=== PATIENT | female | born 1975 | race Caucasian/White ===

== ENCOUNTER 2016-06-03 18:59 | Emergency (ER) | payer MEDICARE, OTHER ==
--- NOTE | ~2016-06-03 | EKG ---
PATIENT: CHRIS GUPTA UNIT #: [id number] Ventricular Rate: 68 BPM Atrial Rate: 68 BPM P-R Interval: 170 ms QRS Duration: 68 ms Q-T Interval: 418 ms QTC Calculation(Bezet): 444 ms P [place]: 74 degrees Calculated R [place]: -7 degrees Calculated T [place]: 51 degrees Diagnosis Line: Normal sinus rhythm Diagnosis Line: Low voltage QRS Diagnosis Line: Borderline ECG Diagnosis Line: When compared with ECG of 13-APR-2016 19:57, Diagnosis Line: No significant change was found Diagnosis Line: Confirmed by WILLY GEORGE MD ([id number]) on 06/04/2016 Diagnosis Line: 7:32:06 PM INTERPRETING MD: ARIEL LEÓN
--- NOTE | ~2016-06-03 | CR72 ---
[facility] A Service of [facility] & [facility] / [facility] RADIOLOGY TEXT RESULTS PATIENT: CHRIS GUPTA LOCATION: [facility] : 77 UNIT #: [id number] AGE: [address]: Ej Navarro MD SEX: F ORDER DR: [id number] [facility] [address] [place], [place] [address] [id number] E MR#: [id number] Acc #: [id number] NAME: CHRIS GUPTA. : 1975 SEX: F STUDY DATE/TIME: 06/03/2016 19:16 UNIT: [facility] ROOM: STUDY DESCRIPTION: CR Chest Single View Portable Attending Physician: Ej Navarro M.D. Ordering Physician: Ed Ashwin Segovia M.D. Primary Care Physician: Eddie Pereira M.D. MEDICAL IMAGING REPORT This report is preliminary unless electronic signature is present EXAM Portable chest, 06/03/2016 HISTORY Generalized weakness, dizziness and lightheadedness beginning today. FINDINGS A single AP portable view of the chest shows both lungs to be clear. The heart is normal in size. The mediastinal contour is normal. No significant bone abnormalities are seen. IMPRESSION Normal portable chest. Dictated by... Ari Dos Santos M.D. THIS IS AN ELECTRONICALLY VERIFIED REPORT Ari Dos Santos M.D. at 06/04/2016 10:56 AM DAMIAN/jackie TD: 06/04/2016 03:34 JOB #: [id number] MEDICAL IMAGING REPORT COPY
[~2016-06-03 18:59] MED LIST: ACETAMINOPHEN PO; ALBUTEROL17 GM INH; ALPRAZOLAM; ALPRAZOLAM PO; ANTI-FUNGAL15 GM TOP; DEPAKOTE; DEPAKOTE (UD)250 M1 PO; DEPAKOTE PO; DIFLUCAN PO; FLEXERIL PO; FLEXERIL10 M1 PO; HUMIBID CS TABL1 TAB PO; HYDROCODON-ACE1 EAC7 PO; KEFLEX PO; KEFLEX500 MG PO; KLONOPIN PO; LORTAB 10-5001 EACH; MAGIC MOUTHWASH PO; MEDROL4 MG/DOSE- PO; NABUMETONE PO; NAPROSYN500 MG PO; ORUDIS75 M1 PO; PAXIL; PAXIL PO; PERCOCET PO; PHENERGAN PO; PREDNISONE PO; PRENATAL VITAMI1 TA3 PO; PRENATAL1 TA1; PRENATAL1 TA1 PO; ULTRAM PO; VICODIN 5/500 T1 TAB PO; VOLTAREN50 MG PO; XANAX1 MG PO; ZITHROMAX PO; ZITHROMAX1 G/PKT PO; ZITHROMAX600 MG PO
[2016-06-03 19:04] LABS: URINE SOURCE CLEAN CATCH
[2016-06-03 19:07] LABS: BASOPHIL# 0.1 X10e3 (0-0.3); BASOPHIL% 1.3 % (0-2.5); EOSINOPHIL# 0.3 X10e3 (0-0.7); HEMATOCRIT 38.1 % (35.0-45.0); HEMOGLOBIN 12.7 gm/dL (12.0-16.0); LYMPHOCYTE# 2.5 X10e3 (1.0-3.5); LYMPHOCYTE% 30.4 % (17.0-45.0); MEAN CELL VOLUME 89.2 FL (83-96); MEAN CORPUSCULAR HEMOGLOBIN 29.7 PG (28-34); MEAN CORPUSCULAR HGB CONC 33.3 g/dL (30-36); MONOCYTE# 0.9 X10e3 (0-1.0); MONOCYTE% 10.9 % (3.0-12.0); NEUTROPHIL# 4.3 X10e3 (1.5-7.1); NEUTROPHIL% 53.4 % (40-75); PLATELET COUNT 279 X10e3 (140-420); RED BLOOD COUNT 4.27 X10e (3.90-5.30); RED CELL DISTRIBUTION WIDTH 12.9 % (11.0-15.5); WHITE BLOOD COUNT 8.1 X10e3 (4.0-10.5)
[2016-06-03 19:08] LABS: DIFF IND NO
[2016-06-03 19:10] LABS: URINE APPEARANCE CLEAR; URINE BILIRUBIN NEG (NEG); URINE BLOOD 1+ (NEG); URINE COLOR YELLOW; URINE GLUCOSE NEG (NEG); URINE KETONE NEG (NEG); URINE LEUKOCYTE ESTERASE TRACE (NEG); URINE NITRATE NEG (NEG); URINE PH 5.5 (5-8); URINE PROTEIN NEG (NEG); URINE SPECIFIC GRAVITY 1.028 (1.003-1.035)
[2016-06-03 19:13] LABS: CULTURE INDICATED? YES; URINE BACTERIA AUWI 1+ (NEGATIVE); URINE SQUAMOUS EPITHELIAL CELL OCC /[HPF]
[2016-06-03 19:22] LABS: POC - CKMB <1.0 ng/mL (0.0-7.9); POC - TROPONIN <0.05 ng/mL (<=0.05)
[2016-06-03 19:35] LABS: ALBUMIN SERUM 3.9 g/dL (3.5-5.0); BILIRUBIN, DIRECT 0.1 mg/dL (0.0-0.2); BILIRUBIN,INDIRECT 0.4 mg/dL (0.0-0.9); BILIRUBIN,TOTAL 0.5 mg/dL (0.2-2.0); BUN/CREATININE RATIO 14.16; CALCIUM SERUM 8.9 mg/dL (8.4-10.2); CREATININE SERUM 1.2 mg/dL (0.6-1.4); GLOM FILT RATE Estimated 52.9 mL/min (>60); POTASSIUM 3.9 mmol/L (3.5-5.1); PROTEIN TOTAL SERUM 7.4 g/dL (6.0-8.3)
[2016-06-03 20:59] LABS: POC - CKMB <1.0 ng/mL (0.0-7.9); POC - TROPONIN <0.05 ng/mL (<=0.05)
== END 2016-06-03 21:20 | disposition home or self-care (01) ==
LOC: CED 18:59
PROVIDERS: Emergency Medicine
DX: R53.1 Weakness (principal); F50.89 Other specified eating disorder; N39.0 Urinary tract infection, site not specified; Z88.5 Allergy status to narcotic agent; F31.9 Bipolar disorder, unspecified; F17.210 Nicotine dependence, cigarettes, uncomplicated
CPT/HCPCS: 36415; 71010; 80048; 80076; 81003; 82553; 82947; 84443; 84484; 84703; 85025; 86850; 86900; 86901; 87086; 93005; 99283

== ENCOUNTER 2016-08-04 18:24 | Emergency (ER) | payer MEDICARE, OTHER | END 2016-08-04 18:43 | disposition home or self-care (01) | LOC: CFTX 18:24 | DX: Z46.6 Encounter for fitting and adjustment of urinary device (principal); F17.210 Nicotine dependence, cigarettes, uncomplicated | CPT/HCPCS: 99282; 99283 ==

== ENCOUNTER 2016-08-06 18:15 | Emergency (ER) | payer OTHER, MEDICARE ==
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
== END 2016-08-06 19:40 | disposition home or self-care (01) ==
LOC: CFTX 18:15
DX: S16.1XXA Strain of muscle, fascia and tendon at neck level, initial encounter (principal); T14.8 Other injury of unspecified body region; F17.210 Nicotine dependence, cigarettes, uncomplicated; F41.9 Anxiety disorder, unspecified; V49.50XA Passenger injured in collision with unspecified motor vehicles in traffic accident, initial encounter; Y92.410 Unspecified street and highway as the place of occurrence of the external cause
CPT/HCPCS: 72040; 72100; 99284

== ENCOUNTER 2016-08-13 08:49 | Emergency (ER) | payer OTHER, MEDICARE ==
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
== END 2016-08-13 10:38 | disposition home or self-care (01) ==
LOC: CED 08:49 → CFTX 08:49
DX: S13.4XXA Sprain of ligaments of cervical spine, initial encounter (principal); S83.91XA Sprain of unspecified site of right knee, initial encounter; F41.9 Anxiety disorder, unspecified; Z87.442 Personal history of urinary calculi; F17.210 Nicotine dependence, cigarettes, uncomplicated; Z88.5 Allergy status to narcotic agent; Z88.6 Allergy status to analgesic agent; V43.62XA Car passenger injured in collision with other type car in traffic accident, initial encounter
CPT/HCPCS: 72040; 99283

== ENCOUNTER 2016-08-16 19:11 | Emergency (ER) | payer MEDICARE, OTHER ==
[2016-08-16 20:30] LABS: URINE SOURCE CLEAN CATCH
[2016-08-16 20:36] LABS: URINE APPEARANCE CLOUDY; URINE BLOOD 3+ (NEG); URINE COLOR DK YELLOW; URINE GLUCOSE NEG (NEG); URINE KETONE TRACE (NEG); URINE LEUKOCYTE ESTERASE TRACE (NEG); URINE NITRATE POS (NEG); URINE PROTEIN 2+ (NEG)
[2016-08-16 20:40] LABS: CULTURE INDICATED? YES; URBCS1 AUWI INNUM /[HPF] (0-2); URINE SQUAMOUS EPITHELIAL CELL OCC /[HPF]
[2016-08-16 20:49] LABS: URINE BILIRUBIN NEG (NEG)
[2016-08-16 20:52] LABS: URINE BACTERIA AUWI 2+ (NEGATIVE); URINE CRYSTALS CALCIUM OXALATE /[HPF]
== END 2016-08-16 22:35 | disposition home or self-care (01) ==
LOC: CED 19:11
PROVIDERS: Emergency Medicine
DX: N30.00 Acute cystitis without hematuria (principal); F17.210 Nicotine dependence, cigarettes, uncomplicated; Z88.5 Allergy status to narcotic agent
CPT/HCPCS: 51702; 81003; 87086; 99283

== ENCOUNTER 2016-10-15 18:37 | Emergency (ER) | payer MEDICARE, OTHER | END 2016-10-15 20:30 | disposition home or self-care (01) | LOC: CFTX 18:37 → CED 18:37 → CFTX 20:08 | DX: L03.112 Cellulitis of left axilla (principal); K21.9 Gastro-esophageal reflux disease without esophagitis; Z88.6 Allergy status to analgesic agent; Z88.5 Allergy status to narcotic agent; W57.XXXA Bitten or stung by nonvenomous insect and other nonvenomous arthropods, initial encounter | CPT/HCPCS: 99282 ==

== ENCOUNTER 2016-11-10 18:29 | Emergency (ER) | payer MEDICARE, OTHER ==
[~2016-11-10] VITALS: Ht 152.4 cm; Wt 60.8 kg
[2016-11-10 19:11] LABS: URINE SOURCE CLEAN CATCH
[2016-11-10 19:19] LABS: URINE APPEARANCE CLEAR; URINE BILIRUBIN NEG (NEG); URINE BLOOD 1+ (NEG); URINE COLOR YELLOW; URINE GLUCOSE NEG (NEG); URINE KETONE NEG (NEG); URINE LEUKOCYTE ESTERASE TRACE (NEG); URINE NITRATE NEG (NEG); URINE PH 5.5 (5-8); URINE PROTEIN NEG (NEG); URINE SPECIFIC GRAVITY 1.022 (1.003-1.035); URINE UROBILINOGEN 0.2 MG/DL (NEG)
[2016-11-10 19:21] LABS: CULTURE INDICATED? YES; U HYALINE CASTS AUWI 0-2 /[LPF]; URINE BACTERIA AUWI 2+ (NEGATIVE); URINE SQUAMOUS EPITHELIAL CELL FEW /[HPF]; UWBCS1 AUWI 0-2 (0-5)
== END 2016-11-10 20:14 | disposition home or self-care (01) ==
LOC: CED 18:29
PROVIDERS: Student in an Organized Health Care Education/Training Program
DX: R30.0 Dysuria (principal); K21.9 Gastro-esophageal reflux disease without esophagitis; F17.200 Nicotine dependence, unspecified, uncomplicated; Z88.5 Allergy status to narcotic agent; Z88.8 Allergy status to other drugs, medicaments and biological substances; Z98.890 Other specified postprocedural states
CPT/HCPCS: 81003; 84703; 87086; 99283

== ENCOUNTER 2016-11-11 07:22 | Emergency (ER) | payer MEDICARE, OTHER ==
[~2016-11-11] VITALS: Ht 152.4 cm; Wt 62.6 kg
--- NOTE | ~2016-11-11 | CT4 ---
[facility] A Service of [facility] & [facility] RADIOLOGY TEXT RESULTS PATIENT: CHRIS GUPTA LOCATION: [facility] : [birth year] UNIT #: [id number] AGE: [address]: Ej Lima MD SEX: F ORDER DR: [id number] [facility] [address] [place], [place] [address] [id number] E MR#: [id number] Acc #: [id number] NAME: CHRIS GUPTA. : 1975 SEX: F STUDY DATE/TIME: 11/11/2016 8:50 UNIT: [facility] ROOM: STUDY DESCRIPTION: CT Abd and Pelv Wo Cont Attending Physician: Ej Lima M.D. Ordering Physician: Ej Lima M.D. Primary Care Physician: Eddie Pereira M.D. MEDICAL IMAGING REPORT This report is preliminary unless electronic signature is present EXAM Abdomen and pelvis CT without contrast. HISTORY Lower abdominal pain radiating into the pelvis beginning last night. TECHNIQUE Axial images were obtained without contrast. This CT exam was performed with one or more of the following radiation dose reduction techniques: Automatic exposure control, adjustment of mA and/or kV according to patient size, and iterative reconstruction. FINDINGS The liver, spleen and pancreas are normal in size. There is a nonobstructing 3 x 7 mm kidney stone on the left in a lower pole dylon. No evidence of hydronephrosis. No adrenal masses. There is no evidence of retroperitoneal adenopathy or ascites. No distended bowel loops are noted. The appendix is normal. In the pelvis, there is no evidence of adenopathy, mass or fluid collection. Moderately increased stool is seen throughout the colon suggesting constipation. IMPRESSION 1. Nonobstructing kidney stone left kidney measuring 3 x 7 mm. 2. No acute or inflammatory changes in the abdomen or pelvis. 3. Moderately increased stool burden suggesting constipation. Since the previous scan of 09/10/2015, no significant changes are noted. Dictated by... Huber Jones M.D. THIS IS AN ELECTRONICALLY VERIFIED REPORT Huber Jones M.D. at 11/11/2016 5:00 PM [facility] A Service of [facility] & [facility] RADIOLOGY TEXT RESULTS PATIENT: CHRIS GUPTA [id number] : [birth year] UNIT #: [id number] AGE: [address]: Ej Lima MD SEX: F ORDER DR: JACQUI/peggy TD: 11/11/2016 14:24 JOB #: [id number] MEDICAL IMAGING REPORT Page 1 of 1 COPY
[2016-11-11 08:23] LABS: BASOPHIL# 0.1 X10e3 (0-0.3); BASOPHIL% 1.2 % (0-2.5); EOSINOPHIL# 0.2 X10e3 (0-0.7); EOSINOPHIL% 2.7 % (0.0-7.0); HEMATOCRIT 40.2 % (35.0-45.0); HEMOGLOBIN 13.7 gm/dL (12.0-16.0); LYMPHOCYTE# 1.8 X10e3 (1.0-3.5); LYMPHOCYTE% 25.1 % (17.0-45.0); MEAN CELL VOLUME 87.7 FL (83-96); MEAN CORPUSCULAR HEMOGLOBIN 29.9 PG (28-34); MEAN CORPUSCULAR HGB CONC 34.2 g/dL (30-36); MEAN PLATELET VOLUME 7.5 FL (6.5-11.5); MONOCYTE# 0.7 X10e3 (0-1.0); MONOCYTE% 9.9 % (3.0-12.0); NEUTROPHIL# 4.4 X10e3 (1.5-7.1); NEUTROPHIL% 61.1 % (40-75); PLATELET COUNT 222 X10e3 (140-420); RED BLOOD COUNT 4.58 X10e (3.90-5.30); RED CELL DISTRIBUTION WIDTH 13.6 % (11.0-15.5); WHITE BLOOD COUNT 7.1 X10e3 (4.0-10.5)
[2016-11-11 08:24] LABS: DIFF IND NO
[2016-11-11 08:45] LABS: URINE SOURCE CLEAN CATCH
[2016-11-11 08:51] LABS: ALBUMIN SERUM 3.7 g/dL (3.5-5.0); ALKALINE PHOSPHATASE 48 U/L (32-92); ALT (SGPT) 18 U/L (10-40); AST (SGOT) 19 U/L (10-42); BILIRUBIN, DIRECT 0.1 mg/dL (0.0-0.2); BILIRUBIN,INDIRECT 0.4 mg/dL (0.0-0.9); BILIRUBIN,TOTAL 0.5 mg/dL (0.2-2.0); BLOOD UREA NITROGEN 14 mg/dL (9-23); BUN/CREATININE RATIO 15.55; CALCIUM SERUM 8.9 mg/dL (8.4-10.2); CARBON DIOXIDE 23 mmol/L (22-31); CHLORIDE 110 mmol/L (100-111); CREATININE SERUM 0.9 mg/dL (0.6-1.4); GLUCOSE FASTING 80 mg/dL (70-110); LIPASE 25 U/L (22-51); POTASSIUM 4.4 mmol/L (3.5-5.1); PROTEIN TOTAL SERUM 7.3 g/dL (6.0-8.3); SODIUM 137 mmol/L (135-145)
[2016-11-11 08:52] LABS: URINE APPEARANCE CLEAR; URINE BILIRUBIN NEG (NEG); URINE BLOOD TRACE (NEG); URINE COLOR YELLOW; URINE GLUCOSE NEG (NEG); URINE KETONE NEG (NEG); URINE LEUKOCYTE ESTERASE NEG (NEG); URINE NITRATE NEG (NEG); URINE PH 5.5 (5-8); URINE PROTEIN NEG (NEG); URINE SPECIFIC GRAVITY 1.015 (1.003-1.035); URINE UROBILINOGEN 0.2 MG/DL (NEG)
[2016-11-11 08:54] LABS: DEPAKENE (VALPROIC ACID) <10 ug/mL (50-125)
[2016-11-11 08:55] LABS: CULTURE INDICATED? NO; URBCS1 AUWI 0-2 /[HPF] (0-2); URINE BACTERIA AUWI NEG (NEGATIVE); URINE SQUAMOUS EPITHELIAL CELL NONE SEEN /[HPF]; UWBCS1 AUWI 0-2 (0-5)
[2016-11-11 09:04] LABS: AMPHETAMINE NEG (NEG); BARBITURATES NEG (NEG); BENZODIAZEPINES NEG (NEG); COCAINE NEG (NEG); MARIJUANA NEG (NEG); OPIATES NEG (NEG); TRICYCLIC ANTIDEPRESSANTS NEG (NEG); U METHADONE NEG (NEG)
[2016-11-14 00:33] LABS: CHLAMYDIA TRACH Not Detected (Not Detected); N GONOR Not Detected (Not Detected)
== END 2016-11-11 10:15 | disposition home or self-care (01) ==
LOC: CED 07:22
PROVIDERS: Emergency Medicine
DX: R10.9 Unspecified abdominal pain (principal); Z88.3 Allergy status to other anti-infective agents
CPT/HCPCS: 36415; 51701; 74176; 80048; 80076; 80164; 80307; 81003; 83690; 84703; 85025; 87491; 87591; 87808; 87905; 96361; 96372; 96374; 99284; J0500; J2405

== ENCOUNTER 2016-12-07 09:24 | Emergency (ER) | payer MEDICARE, OTHER ==
[~2016-12-07] VITALS: Ht 165.1 cm; Wt 60.8 kg
[2016-12-07 10:59] LABS: BASOPHIL# 0.1 X10e3 (0-0.3); BASOPHIL% 1.4 % (0-2.5); DIFF IND NO; EOSINOPHIL# 0.3 X10e3 (0-0.7); EOSINOPHIL% 3.7 % (0.0-7.0); HEMATOCRIT 38.5 % (35.0-45.0); HEMOGLOBIN 13.2 gm/dL (12.0-16.0); LYMPHOCYTE# 2.2 X10e3 (1.0-3.5); LYMPHOCYTE% 25.5 % (17.0-45.0); MEAN CELL VOLUME 87.8 FL (83-96); MEAN CORPUSCULAR HEMOGLOBIN 30.2 PG (28-34); MEAN CORPUSCULAR HGB CONC 34.4 g/dL (30-36); MEAN PLATELET VOLUME 7.7 FL (6.5-11.5); MONOCYTE# 0.8 X10e3 (0-1.0); MONOCYTE% 9.1 % (3.0-12.0); NEUTROPHIL# 5.2 X10e3 (1.5-7.1); NEUTROPHIL% 60.3 % (40-75); PLATELET COUNT 228 X10e3 (140-420); RED BLOOD COUNT 4.38 X10e (3.90-5.30); WHITE BLOOD COUNT 8.6 X10e3 (4.0-10.5)
[2016-12-07 11:20] LABS: CALCIUM SERUM 8.5 mg/dL (8.4-10.2); GLOM FILT RATE Estimated 70.4 mL/min (>60); POTASSIUM 4.2 mmol/L (3.5-5.1)
[2016-12-07 11:48] LABS: URINE SOURCE CATH
[2016-12-07 11:57] LABS: URINE APPEARANCE CLEAR; URINE BILIRUBIN NEG (NEG); URINE BLOOD 3+ (NEG); URINE COLOR YELLOW; URINE GLUCOSE NEG (NEG); URINE KETONE NEG (NEG); URINE LEUKOCYTE ESTERASE TRACE (NEG); URINE NITRATE NEG (NEG); URINE PROTEIN NEG (NEG); URINE SPECIFIC GRAVITY 1.007 (1.003-1.035); URINE UROBILINOGEN 0.2 MG/DL (NEG)
[2016-12-07 11:59] LABS: URINE BACTERIA AUWI NEG (NEGATIVE); URINE SQUAMOUS EPITHELIAL CELL OCC /[HPF]
[2016-12-07 12:01] LABS: CULTURE INDICATED? NO
== END 2016-12-07 13:19 | disposition home or self-care (01) ==
LOC: CED 09:24
PROVIDERS: Physician Assistant
DX: R33.9 Retention of urine, unspecified (principal); F41.9 Anxiety disorder, unspecified; F32.9 Major depressive disorder, single episode, unspecified; E03.9 Hypothyroidism, unspecified; F17.210 Nicotine dependence, cigarettes, uncomplicated; Z88.6 Allergy status to analgesic agent; Z88.8 Allergy status to other drugs, medicaments and biological substances
CPT/HCPCS: 36415; 51701; 80048; 81003; 85025; 99284

== ENCOUNTER 2016-12-08 14:41 | Emergency (ER) | payer MEDICARE, OTHER ==
[2016-12-08 15:21] LABS: URINE SOURCE CLEAN CATCH
[2016-12-08 15:25] LABS: URINE APPEARANCE CLEAR; URINE BILIRUBIN NEG (NEG); URINE BLOOD 1+ (NEG); URINE COLOR YELLOW; URINE GLUCOSE NEG (NORM); URINE KETONE NEG (NEG); URINE LEUKOCYTE ESTERASE TRACE (NEG); URINE NITRATE NEG (NEG); URINE PH 6.5 (5-8); URINE PROTEIN NEG (NEG); URINE SPECIFIC GRAVITY 1.025 (1.003-1.035); URINE UROBILINOGEN 0.2 MG/DL (NORM)
[2016-12-08 15:28] LABS: MICRO INDICATED? YES
[2016-12-08 15:34] LABS: AMPHETAMINE NEG (NEG); BARBITURATES NEG (NEG); BENZODIAZEPINES NEG (NEG); COCAINE NEG (NEG); MARIJUANA NEG (NEG); OPIATES POS (NEG); TRICYCLIC ANTIDEPRESSANTS NEG (NEG); U METHADONE NEG (NEG)
[2016-12-08 15:42] LABS: CULTURE INDICATED? YES; URINE BACTERIA 1+ (NEG); URINE SQUAMOUS EPITHELIAL CELL FEW /[HPF]
== END 2016-12-08 15:55 | disposition home or self-care (01) ==
LOC: SED 14:41
PROVIDERS: Student in an Organized Health Care Education/Training Program
DX: R10.9 Unspecified abdominal pain (principal); K21.9 Gastro-esophageal reflux disease without esophagitis; F17.200 Nicotine dependence, unspecified, uncomplicated; Z88.5 Allergy status to narcotic agent
CPT/HCPCS: 80307; 81003; 84703; 87086; 87088; 87186; 99284

== ENCOUNTER 2016-12-11 16:39 | Emergency (ER) | payer MEDICARE, OTHER ==
[~2016-12-11] VITALS: Ht 152.4 cm; Wt 60.8 kg
== END 2016-12-11 18:54 | disposition home or self-care (01) ==
LOC: CED 16:39
DX: N30.00 Acute cystitis without hematuria (principal); F17.200 Nicotine dependence, unspecified, uncomplicated; Z88.5 Allergy status to narcotic agent; B96.4 Proteus (mirabilis) (morganii) as the cause of diseases classified elsewhere
CPT/HCPCS: 99283